=== PATIENT | female | born 1950 | race Caucasian/White ===

== ENCOUNTER → 2018-03-22 | Outpatient (CLI) | payer MEDICARE, OTHER ==
[~2018-03-22] MED LIST: ASCO-90 PO; ATOR40TA78 PO; CALC-332 PO; CHOL200024 PO; FENO134C PO; ICOS1CAP PO; LACT1CAP35 PO; LISI-170 PO; MULT-658 PO; PANT40TA5 PO; RALO60TA PO; RANI150T4 PO
[2018-03-22 11:25] LABS: ALANINE AMINOTRANSFERASE 52 U/L (12-78); ALBUMIN 4.1 g/dL (3.4-5.0); ANION GAP 8 mmol/L (5-15); CALCIUM 9.4 mg/dL (8.5-10.1); CHLORIDE 106 mmol/L (98-107); CREATININE 0.76 mg/dL (0.55-1.02)
[2018-03-22 11:27] LABS: ALKALINE PHOSPHATASE 57 U/L (45-117); BILIRUBIN,TOTAL 0.5 mg/dL (0.2-1.0); TOTAL PROTEIN 7.4 g/dL (6.4-8.2)
== END | disposition home or self-care (01) ==
LOC: STAR 09:56
PROVIDERS: ATTEND Thoracic Surgery (Cardiothoracic Vascular Surgery)
DX: Z01.818 Encounter for other preprocedural examination (principal)
CPT/HCPCS: 36415; 80053; 93005

== ENCOUNTER 2018-03-30 06:25 | Observation (INO) | payer MEDICARE, OTHER ==
[~2018-03-30] VITALS: Ht 157.5 cm; Wt 84.6 kg
[2018-03-30] MEDS ORDERED: BUPIVACAINE/PF-EPI 0.5% 1:200K ONE (06:38)
[2018-03-30] MEDS ORDERED: LACTATED RINGERS 1,000 ML IV SCH (07:08)
[2018-03-30 07:29] VITALS: BP 124/76
[2018-03-30] MEDS ORDERED: ONDANSETRON 2MG/ML, 2ML IVPush ONE (07:30)
[2018-03-30] MEDS ORDERED: ACETAMINOPHEN 500 MG TABLET PO ONE (07:30)
[2018-03-30] MEDS ORDERED: GABAPENTIN 300 MG CAPSULE PO ONE (07:30)
[2018-03-30] MEDS ORDERED: DIAZEPAM 5 MG TABLET PO ONE (07:30)
[2018-03-30] MEDS ORDERED: FENTANYL PF 250 MCG/5ML ONE (08:07)
[2018-03-30] MEDS ORDERED: MIDAZOLAM 1 MG/ML, 2ML ONE (08:07)
[2018-03-30] MEDS ORDERED: EPHEDRINE 50 MG/ML, 1ML ONE (08:42)
[2018-03-30] MEDS ORDERED: PHENYLEPHRINE 10 MG/ML ONE (08:42)
[2018-03-30] MEDS ORDERED: DEXAMETHASONE 4 MG/ML, 1ML ONE (08:42)
[2018-03-30] MEDS ORDERED: hydrALAzine 20 MG/ML, 1ML IV PRN (09:30)
[2018-03-30] MEDS ORDERED: HYDROmorphone 2 MG/ML, 1ML IVPush PRN ×2 (09:30→10:30)
[2018-03-30] MEDS ORDERED: OXYcodone 5 MG/5 ML ORAL.SOL UDC PO PRN (09:30)
[2018-03-30] MEDS ORDERED: MEPERIDINE/PF 25MG/0.5ML IVPush PRN (09:30)
[2018-03-30] MEDS ORDERED: FENTANYL PF 100 MCG/2ML IV PRN (09:30)
[2018-03-30] MEDS ORDERED: ALBUTEROL/IPRATROPIUM 2.5MG/0.5MG, 3 ML NPPB PRN (09:30)
[2018-03-30] MEDS ORDERED: SCOPOLAMINE PATCH, 1.5MG PATCH.TD72 TD PRN (09:30)
[2018-03-30] MEDS ORDERED: PROMETHAZINE 25 MG/ML, 1ML IV PRN (09:30)
[2018-03-30] MEDS ORDERED: MIDAZOLAM 1 MG/ML, 2ML IV PRN (09:30)
[2018-03-30] MEDS ORDERED: ONDANSETRON 2MG/ML, 2ML IV PRN (09:30)
[2018-03-30] MEDS ORDERED: METOPROLOL 1 MG/ML, 5ML IV PRN (09:30)
[2018-03-30] MEDS ORDERED: PROPOFOL 10 MG/ML, 20ML ONE (09:53)
[2018-03-30] MEDS ORDERED: ROCURONIUM 10MG/ML,5ML ONE (09:53)
[2018-03-30] MEDS ORDERED: NEOSTIGMINE 1 MG/ML, 10ML ONE (09:53)
[2018-03-30] MEDS ORDERED: CEFAZOLIN 1,000 MG ONE (09:53)
[2018-03-30] MEDS ORDERED: GLYCOPYRROLATE 0.2MG/1ML, 5ML ONE (09:53)
[2018-03-30] MEDS ORDERED: SUCCINYLCHOLINE 20 MG/ML, 10ML ONE (09:53)
[2018-03-30] MEDS ORDERED: SUGAMMADEX 200 MG/2 ML IVPush ONE (10:05)
[2018-03-30] MEDS: LACTATED RINGERS 1,000 ML IV SCH ×2 (10:05→23:25)
[2018-03-30] MEDS ORDERED: OXYcodone 5 MG/5 ML ORAL.SOL UDC ONE (10:25)
[2018-03-30] MEDS ORDERED: KETOROLAC 30 MG/1 ML ONE (10:25)
[2018-03-30] MEDS ORDERED: FENTANYL PF 100 MCG/2ML ONE (10:25)
[2018-03-30] MEDS ORDERED: HYDROcodone/APAP 7.5-325MG/15ML UDC PO PRN (10:30)
[2018-03-30] MEDS ORDERED: KETOROLAC 30 MG/1 ML IVPush PRN (10:30)
[2018-03-30] MEDS ORDERED: ONDANSETRON 2MG/ML, 2ML IVPush PRN (10:30)
[2018-03-30 14:18] VITALS: BP 128/81
[2018-03-30 18:57] VITALS: BP 116/63
[2018-03-31 00:29] VITALS: BP 100/60
[2018-03-31 06:49] VITALS: BP 139/72
[2018-03-31] MEDS ORDERED: ENOXAPARIN 40 MG/0.4 ML SQ SCH (09:00)
[2018-03-31] MEDS ORDERED: HYDR473S51 PO (09:52)
== END 2018-03-31 10:10 | disposition home or self-care (01) ==
LOC: OUT 06:25 → 4NOR 14:14 → OUT 19:34 → 4NOR 19:35 → DCLOUNGE 03-31 09:47
PROVIDERS: ADMIT Thoracic Surgery (Cardiothoracic Vascular Surgery); ATTEND Thoracic Surgery (Cardiothoracic Vascular Surgery)
DX: K44.9 Diaphragmatic hernia without obstruction or gangrene (principal); K21.9 Gastro-esophageal reflux disease without esophagitis
CPT/HCPCS: 43282; 96372; G0378; J0330; J0690; J1100; J1650; J1885; J2250; J2370; J2405; J2704; J2710; J3010; J3490; J7120; Q4116

== ENCOUNTER → 2018-12-07 | Outpatient (CLI) | payer MEDICARE, OTHER ==
[~2018-12-07] MED LIST changes: +HYDR473S51 PO
[2018-12-07 10:27] LABS: BASOPHILS # (AUTO) 0.03 x10^3/uL (0-0.1); BASOPHILS % (AUTO) 0 % (0-1); EOSINOPHILS # (AUTO) 0.02 x10^3/uL (0-0.4); EOSINOPHILS % (AUTO) 0 % (1-7); LYMPHOCYTES # (AUTO) 2.06 x10^3/uL (1-3.4); LYMPHOCYTES % (AUTO) 27 % (22-44); MD NO; MEAN CORPUSCULAR HEMOGLOBIN 28.8 pg (27.0-34.8); MEAN CORPUSCULAR HGB CONC 32.1 g/dL (32.4-35.8); MEAN CORPUSCULAR VOLUME 89.7 fL (80-100); MEAN PLATELET VOLUME 8.9 fL (7.4-10.4); MONOCYTES # (AUTO) 0.62 x10^3/uL (0.2-0.8); MONOCYTES % (AUTO) 8 % (2-9); NEUTROPHILS # (AUTO) 4.84 x10^3/uL (1.8-6.8); NEUTROPHILS % (AUTO) 64 % (42-75); PLATELET COUNT 369 x10^3/uL (130-400); RED BLOOD COUNT 4.68 x10^6/uL (3.82-5.3); RED CELL DISTRIBUTION WIDTH 14.7 % (9.6-15.2)
[2018-12-07 10:33] LABS: CALCIUM 8.9 mg/dL (8.5-10.1); CHLORIDE 111 mmol/L (98-107)
[2018-12-07 10:40] LABS: ALANINE AMINOTRANSFERASE 36 U/L (12-78); ALKALINE PHOSPHATASE 56 U/L (45-117); ANION GAP 4 mmol/L (5-15); BILIRUBIN,TOTAL 0.7 mg/dL (0.2-1.0); CREATININE 0.66 mg/dL (0.55-1.02); TOTAL PROTEIN 7.5 g/dL (6.4-8.2)
== END | disposition home or self-care (01) ==
LOC: STAR 08:54
PROVIDERS: ATTEND Orthopaedic Surgery
DX: Z01.818 Encounter for other preprocedural examination (principal); M17.11 Unilateral primary osteoarthritis, right knee; K21.9 Gastro-esophageal reflux disease without esophagitis; I10 Essential (primary) hypertension
CPT/HCPCS: 36415; 80053; 85025; 87081; 93005

== ENCOUNTER 2018-12-21 08:59 | Inpatient (IN) | payer MEDICARE, OTHER ==
[~2018-12-21] VITALS: Ht 157.5 cm; Wt 78.9 kg
[~2018-12-21 08:59] MED LIST changes: +EPINEPHRINE 1 MG/ML, 1ML ONE; +KETOROLAC 60 MG/2 ML ONE; +ROPIvacaine/PF 0.2%, 20 ML ONE; +TRANEXAMIC ACID 100 MG/ML, 10ML ONE; +VANCOMYCIN 1,000 MG ONE
[2018-12-21] MEDS ORDERED: LACTATED RINGERS 1,000 ML IV SCH (10:41)
[2018-12-21] MEDS ORDERED: PREGABALIN 150 MG CAPSULE PO ONE (11:00)
[2018-12-21] MEDS ORDERED: ACETAMINOPHEN 500 MG TABLET PO ONE (11:00)
[2018-12-21] MEDS ORDERED: SCOPOLAMINE PATCH, 1.5MG PATCH.TD72 TD ONE (11:00)
[2018-12-21 11:10] VITALS: BP 147/87
[2018-12-21] MEDS ORDERED: MIDAZOLAM 1 MG/ML, 2ML ONE (11:42)
[2018-12-21] MEDS ORDERED: FENTANYL PF 250 MCG/5ML ONE (11:42)
[2018-12-21] MEDS ORDERED: CEFAZOLIN 1,000 MG ONE (13:17)
[2018-12-21] MEDS ORDERED: ONDANSETRON 2MG/ML, 2ML ONE (13:17)
[2018-12-21] MEDS ORDERED: DEXAMETHASONE 4 MG/ML, 1ML ONE (13:17)
[2018-12-21] MEDS ORDERED: SUCCINYLCHOLINE 20 MG/ML, 10ML ONE (13:17)
[2018-12-21] MEDS ORDERED: ROCURONIUM 10 MG/ML,10ML ONE (13:17)
[2018-12-21] MEDS ORDERED: PROPOFOL 10 MG/ML, 20ML ONE (13:17)
[2018-12-21] MEDS ORDERED: ONDANSETRON 2MG/ML, 2ML IVPush PRN ×2 (14:00→15:30)
[2018-12-21] MEDS ORDERED: METOCLOPRAMIDE 5 MG/ML, 2ML IV PRN (14:00)
[2018-12-21] MEDS ORDERED: LABETALOL 5MG/ML, 20ML IV PRN (14:00)
[2018-12-21] MEDS ORDERED: KETOROLAC 30 MG/1 ML IV PRN (14:00)
[2018-12-21] MEDS ORDERED: ALBUTEROL SULFATE 2.5 MG/3 ML NPPB PRN (14:00)
[2018-12-21] MEDS ORDERED: MEPERIDINE/PF 25MG/0.5ML IVPush PRN (14:00)
[2018-12-21] MEDS ORDERED: PROMETHAZINE 25 MG/ML, 1ML IV PRN (14:00)
[2018-12-21] MEDS ORDERED: hydrALAzine 20 MG/ML, 1ML IV PRN (14:00)
[2018-12-21] MEDS ORDERED: HYDROmorphone 1 MG/ML, 1ML INJ IV PRN (14:00)
[2018-12-21] MEDS ORDERED: LABETALOL 5 MG/ML SYR. (IV ONLY) IV PRN (15:24)
[2018-12-21] MEDS ORDERED: HYDROmorphone 2 MG/ML, 1ML IVPush PRN (15:30)
[2018-12-21] MEDS ORDERED: TRANEXAMIC ACID 1,000 MG in SODIUM CHLORIDE 0.9% 100 ML IVPB ONE (15:30)
[2018-12-21] MEDS ORDERED: DIPHENHYDRAMINE 25 MG CAPSULE PO PRN (15:30)
[2018-12-21] MEDS ORDERED: ONDANSETRON 4 MG TABLET PO PRN (15:30)
[2018-12-21] MEDS ORDERED: DIAZEPAM 5 MG TABLET PO PRN (15:30)
[2018-12-21] MEDS ORDERED: OXYcodone IR 5MG TABLET PO PRN ×2 (15:30)
[2018-12-21] MEDS ORDERED: SENNA/DOCUSATE TABLET PO PRN (15:30)
[2018-12-21] MEDS ORDERED: OXYcodone 5 MG/5 ML ORAL.SOL UDC ONE (15:32)
[2018-12-21] MEDS ORDERED: FENTANYL PF 100 MCG/2ML ONE (15:32)
[2018-12-21] MEDS: FENTANYL PF 100 MCG/2ML IV PRN ×2 (15:37→15:56)
[2018-12-21] MEDS: OXYcodone 5 MG/5 ML ORAL.SOL UDC PO PRN ×2 (15:46→15:58)
[2018-12-21] MEDS ORDERED: hydrALAzine 20 MG/ML, 1ML ONE (16:01)
[2018-12-21 17:10] VITALS: BP 143/78
[2018-12-21] MEDS: ACETAMINOPHEN 500 MG TABLET PO SCH (18:38)
[2018-12-21] MEDS: LACTATED RINGERS 1,000 ML IV SCH (18:38)
[2018-12-21 19:21] VITALS: BP 117/70
[2018-12-21] MEDS: CALCIUM/VITAMIN D3 250-125 TABLET PO SCH (20:09)
[2018-12-21] MEDS: PREGABALIN 75 MG CAPSULE PO SCH (20:09)
[2018-12-21] MEDS: Icosapent Ethyl (Vascepa) 2 GM) HOMEMEDPO SCH (20:10)
[2018-12-21] MEDS ORDERED: ATORVASTATIN 40 MG TABLET PO SCH (21:00)
[2018-12-21] MEDS ORDERED: FENOFIBRATE 145 MG TABLET PO SCH (21:00)
[2018-12-21] MEDS: CEFAZOLIN PMX 1GM/50ML 50 ML IVPB SCH (21:16)
[2018-12-22 00:41] VITALS: BP 113/69
[2018-12-22] MEDS: ACETAMINOPHEN 500 MG TABLET PO SCH ×2 (00:51→06:18)
[2018-12-22] MEDS: CEFAZOLIN PMX 1GM/50ML 50 ML IVPB SCH (05:33)
[2018-12-22] MEDS ORDERED: DEXAMETHASONE 4 MG/ML, 1ML IVPush ONE (06:00)
[2018-12-22] MEDS: ASPIRIN 81 MG TABLET EC PO SCH ×2 (06:18→08:47)
[2018-12-22 07:17] VITALS: BP 114/66
[2018-12-22] MEDS: LACTATED RINGERS 1,000 ML IV SCH (07:20)
[2018-12-22] MEDS ORDERED: ASPI81TA45 PO (08:34)
[2018-12-22] MEDS: PREGABALIN 75 MG CAPSULE PO SCH (08:47)
[2018-12-22] MEDS: CALCIUM/VITAMIN D3 250-125 TABLET PO SCH (08:48)
[2018-12-22] MEDS ORDERED: MULTIVITAMIN 1 TABLET PO SCH (09:00)
[2018-12-22] MEDS ORDERED: LISINOPRIL 20 MG TABLET PO SCH (09:00)
[2018-12-22] MEDS ORDERED: LACTOBACILLUS CHEW TABLET PO SCH (09:00)
[2018-12-22] MEDS ORDERED: RALOXIFENE 60 MG TABLET PO SCH (09:00)
[2018-12-22] MEDS: Icosapent Ethyl (Vascepa) 2 GM) HOMEMEDPO SCH (09:37)
[2018-12-22 11:39] VITALS: BP 145/72
[2018-12-22] MEDS ORDERED: OXYC5CAP2 PO (12:21)
== END 2018-12-22 12:40 | disposition home or self-care (01) | DRG 468 ==
LOC: ORIP 10:24 → 4NE 17:04 → DCLOUNGE 12-22 12:25
PROVIDERS: ADMIT Orthopaedic Surgery; ATTEND Orthopaedic Surgery
PROC: 0SRC0J9 Replacement of Right Knee Joint with Synthetic Substitute, Cemented, Open Approach (ICD-10-PCS; 2018-12-21)
PROC: 3E0T3BZ Introduction of Anesthetic Agent into Peripheral Nerves and Plexi, Percutaneous Approach (ICD-10-PCS; 2018-12-21)
PROC: 0SPC0JZ Removal of Synthetic Substitute from Right Knee Joint, Open Approach (ICD-10-PCS; principal; 2018-12-21 13:00)
DX: M17.11 Unilateral primary osteoarthritis, right knee (principal); K21.9 Gastro-esophageal reflux disease without esophagitis; I10 Essential (primary) hypertension; M81.0 Age-related osteoporosis without current pathological fracture; Z82.61 Family history of arthritis; Z82.3 Family history of stroke; Z88.8 Allergy status to other drugs, medicaments and biological substances; Z82.49 Family history of ischemic heart disease and other diseases of the circulatory system
CPT/HCPCS: 36415; 85018; C1713; G0378; J0171; J0690; J1100; J1885; J2250; J2405; J2704; J2795; J3010; J3370; C1776; J0330; J0360

== ENCOUNTER 2020-08-03 10:23 | Emergency (ER) | payer MEDICARE, OTHER ==
[~2020-08-03] VITALS: Ht 157.5 cm; Wt 81.3 kg
[~2020-08-03 10:23] MED LIST changes: +ASPI81TA45 PO; -EPINEPHRINE 1 MG/ML, 1ML ONE; -KETOROLAC 60 MG/2 ML ONE; +OXYC5CAP2 PO; -PANT40TA5 PO; +PANT40TA6 PO; -ROPIvacaine/PF 0.2%, 20 ML ONE; -TRANEXAMIC ACID 100 MG/ML, 10ML ONE; -VANCOMYCIN 1,000 MG ONE
--- NOTE | 2020-08-03 10:58 | NUR ---
PT AMBULATED TO ROOM FROM TRIAGE. PT CO LEFT CHEST PAIN THAT STARTED AT 0700 THAT GETS WORSE WITH DEEP BREATHING. PAIN WITH PALPATION TO LEFT CHEST WALL. PT DENIES ANY SOB OR FEVER, BUT FEELS FATIGUED. PT STATED THAT SHE HAS BEEN FEELING FATIGUE OVER THE LAST 2-3 WEEKS.
[2020-08-03 11:19] LABS: BASOPHILS % (AUTO) 0 % (0-1); EOSINOPHILS % (AUTO) 1 % (1-7); LYMPHOCYTES % (AUTO) 30 % (22-44); MEAN CORPUSCULAR HEMOGLOBIN 29.4 pg (27.0-34.8); MEAN CORPUSCULAR HGB CONC 33.3 g/dL (32.4-35.8); MEAN PLATELET VOLUME 8.6 fL (7.4-10.4); MONOCYTES % (AUTO) 9 % (2-9); NEUTROPHILS % (AUTO) 60 % (42-75); PLATELET COUNT 316 x10^3/uL (130-400); RED BLOOD COUNT 4.56 x10^6/uL (3.82-5.3)
[2020-08-03 11:30] LABS: ALANINE AMINOTRANSFERASE 33 U/L (12-78); ALBUMIN 3.5 g/dL (3.4-5.0); ANION GAP 8 mmol/L (5-15); CALCIUM 8.8 mg/dL (8.5-10.1); CHLORIDE 110 mmol/L (98-107); CREATININE 0.61 mg/dL (0.55-1.02)
[2020-08-03 11:35] LABS: ALKALINE PHOSPHATASE 63 U/L (45-117); BILIRUBIN,TOTAL 0.4 mg/dL (0.2-1.0); TOTAL PROTEIN 6.8 g/dL (6.4-8.2); TROPONIN I < 0.015 ng/mL (0.000-0.045)
[2020-08-03 11:49] VITALS: BP 169/91
--- NOTE | 2020-08-03 11:50 | NUR ---
PT RESTING IN [facility] COMFORTABLY CALL LIGHT WITHIN REACH.
--- NOTE | 2020-08-03 12:00 | NUR ---
PT RESTING IN [facility] COMFORTABLY. CALL LIGHT WITHIN REACH.
--- NOTE | 2020-08-03 13:04 | NUR ---
DISCHARGE INTRUCTIONS REVIEWED WITH PT. ALL QUESTIONS ANSWERED AT THIS TIME.
== END 2020-08-03 13:06 | disposition home or self-care (01) ==
LOC: ED 10:57
DX: M94.0 Chondrocostal junction syndrome [Tietze] (principal); R07.2 Precordial pain; I10 Essential (primary) hypertension; Z87.891 Personal history of nicotine dependence
CPT/HCPCS: 36415; 71045; 80053; 83880; 84484; 85025; 85379; 93005; 99285

== ENCOUNTER → 2020-09-30 | Outpatient (CLI) | payer MEDICARE, OTHER ==
[2020-09-30 09:05] LABS: ANION GAP 7 mmol/L (5-15); CHLORIDE 102 mmol/L (98-107); CREATININE 0.58 mg/dL (0.55-1.02)
== END | disposition home or self-care (01) ==
LOC: LAB 08:28
PROVIDERS: ATTEND Internal Medicine
DX: I10 Essential (primary) hypertension (principal)
CPT/HCPCS: 36415; 80048

== ENCOUNTER → 2020-11-07 | Outpatient (CLI) | payer MEDICARE, OTHER | END | disposition home or self-care (01) | LOC: LAB 10:03 | PROVIDERS: ATTEND Internal Medicine | DX: I10 Essential (primary) hypertension (principal) ==